=== PATIENT | male | born 1935 | race Caucasian/White ===

== ENCOUNTER 2016-09-03 21:23 | Emergency (ER) | payer MEDICARE ==
[~2016-09-03] VITALS: Ht 182.9 cm; Wt 62.6 kg
[2016-09-03 22:42] LABS: Basophils # (auto) 0 uL; Basophils % (auto) 0.3 % (0.0-2.0); Eosinophils # (auto) 0.1 uL; Eosinophils % (auto) 1.7 % (0.0-7.0); Hematocrit 29.7 % (41.0-53.0); Lymphocytes # (auto) 0.8 uL; Lymphocytes % (auto) 9.9 % (10.0-50.0); Mean Corpuscular Hemoglobin 31.3 pg (28.0-32.0); Mean Corpuscular Hgb Conc. 33.6 g/dL (32.0-36.0); Mean Corpuscular Volume 93.1 fL (80.0-100.0); Mean Platelet Volume 10.5 fL (7.4-10.4); Monocytes # (auto) 0.5 uL; Monocytes % (auto) 6.3 % (0.0-12.0); Neutrophils # (auto) 6.3 uL; Neutrophils % (auto) 81.8 % (37.0-80.0); Platelet Count (auto) 231 10^3/uL (140-450); Red Cell Distribution Width 14.1 % (11.6-16.0); White Blood Cell 7.7 10^3/uL (4.4-10.8)
[2016-09-03 22:58] LABS: Albumin 3.3 g/dL (3.4-5.0); BUN/Creatinine Ratio 6.3; Calcium 9.3 mg/dL (8.5-10.1); Potassium 3.5 mmol/L (3.5-5.1)
[2016-09-03 23:00] LABS: Bilirubin, Total 0.2 mg/dL (0.2-1.0); Total Protein 6.8 g/dL (6.4-8.2)
[2016-09-04 05:34] VITALS: BP 123/65
== END 2016-09-04 05:30 | disposition home or self-care (01) ==
LOC: ER 21:23
DX: R53.1 Weakness (principal); T50.905A Adverse effect of unspecified drugs, medicaments and biological substances, initial encounter; I12.0 Hypertensive chronic kidney disease with stage 5 chronic kidney disease or end stage renal disease; N18.6 End stage renal disease; Z99.2 Dependence on renal dialysis; E11.649 Type 2 diabetes mellitus with hypoglycemia without coma; R51 Headache; Z88.1 Allergy status to other antibiotic agents; Z88.8 Allergy status to other drugs, medicaments and biological substances; E11.22 Type 2 diabetes mellitus with diabetic chronic kidney disease; Y93.89 Activity, other specified; Y99.9 Unspecified external cause status; Y92.89 Other specified places as the place of occurrence of the external cause
CPT/HCPCS: 36415; 70450; 80053; 85025; 93005; 94761

== ENCOUNTER 2016-10-10 13:18 | Emergency (ER) | payer MEDICARE ==
[~2016-10-10] VITALS: Ht 177.8 cm; Wt 77.1 kg
[2016-10-10 14:11] LABS: Basophils # (auto) 0 uL; Basophils % (auto) 0.2 % (0.0-2.0); Eosinophils # (auto) 0.3 uL; Eosinophils % (auto) 3.6 % (0.0-7.0); Hemoglobin 10.1 g/dL (13.5-17.5); Lymphocytes % (auto) 12.6 % (10.0-50.0); Mean Corpuscular Hemoglobin 31.1 pg (28.0-32.0); Mean Corpuscular Hgb Conc. 32.5 g/dL (32.0-36.0); Mean Corpuscular Volume 95.8 fL (80.0-100.0); Mean Platelet Volume 10.7 fL (7.4-10.4); Monocytes # (auto) 0.6 uL; Monocytes % (auto) 7.9 % (0.0-12.0); Neutrophils # (auto) 5.7 uL; Neutrophils % (auto) 75.7 % (37.0-80.0); Platelet Count (auto) 218 10^3/uL (140-450); SUSPECT VIEW TRANSMISSION; White Blood Cell 7.6 10^3/uL (4.4-10.8)
[2016-10-10 14:33] LABS: Albumin 3.5 g/dL (3.4-5.0); Alkaline Phosphatase 66 U/L (45-117); Anion Gap 10 (5-15); Aspartate Aminotransferase 9 U/L (15-37); BUN/Creatinine Ratio 7.2; Bilirubin, Total 0.4 mg/dL (0.2-1.0); Blood Urea Nitrogen 51 mg/dL (7-18); Calcium 9.3 mg/dL (8.5-10.1); Carbon Dioxide 35 mmol/L (21-32); Chloride 96 mmol/L (98-107); GFR African American 10 mL/min; GFR Non-African American 8 mL/min; Glucose 79 mg/dL (74-106); Potassium 3.6 mmol/L (3.5-5.1); Sodium 141 mmol/L (136-145); Total Protein 6.8 g/dL (6.4-8.2)
[2016-10-10] MEDS ORDERED: ONDANSETRON HCL 4 MG/2 ML VIAL IV ONE (19:15)
[2016-10-10] MEDS ORDERED: MORPHINE SULF INJ 2 MG/ML SYRINGE 1ML IV ONE (19:15)
[2016-10-10 21:06] VITALS: BP 132/71
== END 2016-10-10 21:25 | disposition home or self-care (01) ==
LOC: ER 13:18
DX: S76.912A Strain of unspecified muscles, fascia and tendons at thigh level, left thigh, initial encounter (principal); I12.0 Hypertensive chronic kidney disease with stage 5 chronic kidney disease or end stage renal disease; N18.6 End stage renal disease; E11.22 Type 2 diabetes mellitus with diabetic chronic kidney disease; R53.1 Weakness; Z88.1 Allergy status to other antibiotic agents; Z99.2 Dependence on renal dialysis; W18.39XA Other fall on same level, initial encounter; Y93.89 Activity, other specified; Y92.89 Other specified places as the place of occurrence of the external cause; Y99.8 Other external cause status
CPT/HCPCS: 36415; 72192; 73552; 80053; 84484; 85025; 85379; 93971; 96374; 96375; 99285; J2270; J2405

== ENCOUNTER 2017-08-24 18:59 | Inpatient (IN) | payer MEDICARE ==
[~2017-08-24] VITALS: Ht 175.3 cm; Wt 79.3 kg
[~2017-08-24 18:59] MED LIST: AMLO10TA2 PO; CARV25TA55 PO; CITA10TA59 PO; SEVE800T8 PO; TRAGPOW14 XX; VALS320T15 PO
[2017-08-24 20:53] LABS: Basophils # (auto) 0 uL; Basophils % (auto) 0.5 % (0.0-2.0); Eosinophils # (auto) 0.3 uL; Eosinophils % (auto) 4.3 % (0.0-7.0); Hematocrit 28.8 % (41.0-53.0); Hemoglobin 9.4 g/dL (13.5-17.5); Lymphocytes % (auto) 15.3 % (10.0-50.0); Mean Corpuscular Hemoglobin 31.3 pg (28.0-32.0); Mean Corpuscular Hgb Conc. 32.7 g/dL (32.0-36.0); Mean Corpuscular Volume 95.6 fL (80.0-100.0); Monocytes # (auto) 0.6 uL; Monocytes % (auto) 8.9 % (0.0-12.0); Neutrophils # (auto) 4.5 uL; Nucleated Red Blood Cells % 0.1 %; Platelet Count (auto) 242 10^3/uL (140-450); Red Blood Cells 3.01 10^6/uL (4.5-5.90); Red Cell Distribution Width 13.9 % (11.8-14.3); White Blood Cell 6.3 10^3/uL (4.4-10.8)
[2017-08-24 21:15] LABS: Alanine Aminotransferase 19 U/L (16-61); Albumin 2.6 g/dL (3.4-5.0); Alkaline Phosphatase 58 U/L (45-117); Anion Gap 10 (5-15); Aspartate Aminotransferase 19 U/L (15-37); BUN/Creatinine Ratio 7.6; Bilirubin, Total 0.4 mg/dL (0.2-1.0); Blood Urea Nitrogen 46 mg/dL (7-18); Calcium 9.3 mg/dL (8.5-10.1); Carbon Dioxide 32 mmol/L (21-32); Chloride 96 mmol/L (98-107); GFR African American 11 mL/min; GFR Non-African American 9 mL/min; Glucose 108 mg/dL (74-106); Magnesium 2.3 mg/dL (1.6-2.6); Potassium 3.7 mmol/L (3.5-5.1); Sodium 138 mmol/L (136-145); Total Protein 6.3 g/dL (6.4-8.2)
[2017-08-24] MEDS ORDERED: FUROSEMIDE 20 MG/2 ML VIAL ONE (23:41)
[2017-08-25] MEDS ORDERED: LEVOFLOXACIN 750MG 150 ML IV ONE (00:15)
[2017-08-25] MEDS ORDERED: FUROSEMIDE 20 MG/2 ML VIAL IV ONE ×2 (00:30→00:45)
[2017-08-25] MEDS ORDERED: ONDANSETRON HCL 4 MG/2 ML VIAL IV PRN (03:45)
[2017-08-25] MEDS ORDERED: ACETAMINOPHEN 500 MG TAB PO PRN ×2 (03:45→11:30)
[2017-08-25] MEDS: HYDROcodone-ACET 5/325MG TAB PO PRN ×2 (04:53→16:26)
[2017-08-25 06:25] LABS: Basophils # (auto) 0 uL; Eosinophils # (auto) 0.2 uL; Hematocrit 22.8 % (41.0-53.0); Monocytes # (auto) 0.6 uL; Red Blood Cells 2.38 10^6/uL (4.5-5.90); White Blood Cell 5.9 10^3/uL (4.4-10.8)
[2017-08-25 06:28] LABS: Basophils % (auto) 0.7 % (0.0-2.0); Eosinophils % (auto) 4.3 % (0.0-7.0); Hemoglobin 7.6 g/dL (13.5-17.5); Lymphocytes % (auto) 16.8 % (10.0-50.0); Mean Corpuscular Hemoglobin 32.1 pg (28.0-32.0); Mean Corpuscular Hgb Conc. 33.6 g/dL (32.0-36.0); Mean Corpuscular Volume 95.6 fL (80.0-100.0); Neutrophils % (auto) 68.2 % (37.0-80.0); Platelet Count (auto) 221 10^3/uL (140-450); Red Cell Distribution Width 14.3 % (11.8-14.3)
[2017-08-25 06:46] LABS: BUN/Creatinine Ratio 7.8; Calcium 9.2 mg/dL (8.5-10.1); Potassium 3.8 mmol/L (3.5-5.1)
[2017-08-25] MEDS ORDERED: amLODIPine BESYLATE 5 MG TAB PO ONE (08:30)
[2017-08-25] MEDS: AZITHROMYCIN 500MG/ 250ML 250 ML IV SCH (09:56)
[2017-08-25] MEDS ORDERED: CITALOPRAM HYDROBR 20 MG TAB PO SCH (10:00)
[2017-08-25] MEDS ORDERED: CARVEDILOL 12.5 MG TAB PO SCH ×2 (10:00→22:00)
[2017-08-25] MEDS ORDERED: cefTRIAXone 1GM/10ml IVPUSH 10 ML IV ONE (11:30)
[2017-08-25] MEDS ORDERED: LORazepam 0.5 MG TAB PO PRN (11:30)
[2017-08-25] MEDS ORDERED: OSELTAMIVIR 75 MG CAP PO ONE (11:30)
[2017-08-25] MEDS ORDERED: PROMETHAZINE HCL 25 MG/ML 1ML IV PRN (11:30)
[2017-08-25] MEDS ORDERED: MORPHINE SULF INJ 2 MG/ML SYRINGE 1ML IV PRN (11:30)
[2017-08-25] MEDS ORDERED: VANCOMYCIN PER PHARMACY 0 MG IV SCH (11:30)
[2017-08-25] MEDS ORDERED: TEMAZEPAM 15 MG CAP PO PRN (11:30)
[2017-08-25] MEDS ORDERED: ALBUTEROL SULF 2.5 MG/0.5ML(0.5%) NEB SOLN NEB PRN (11:30)
[2017-08-25] MEDS ORDERED: CITALOPRAM HYDROBR 20 MG TAB PO ONE (11:45)
[2017-08-25] MEDS ORDERED: VALSARTAN 80 MG TAB PO ONE (11:45)
[2017-08-25] MEDS ORDERED: PANTOPRAZOLE 40 MG/10 ML VIAL IV ONE (11:45)
[2017-08-25] MEDS ORDERED: LACTULOSE 20Gm/30ML SOLN PO PRN (11:45)
[2017-08-25] MEDS: IPRATROPIUM BROM 0.5 MG/2.5ML INH SOL NEB SCH ×2 (12:00→18:00)
[2017-08-25] MEDS: methylPREDNISolone SOD SUCC 40 MG/ML VL IV SCH ×2 (12:00→18:43)
[2017-08-25] MEDS: ALBUTEROL SULF 2.5 MG/0.5ML(0.5%) NEB SOLN NEB SCH ×2 (12:00→18:00)
[2017-08-25] MEDS: SEVELAMER 800 MG TAB PO SCH ×2 (12:01→18:43)
[2017-08-25] MEDS ORDERED: VANCOMYCIN 1GM/250ML 250 ML IV ONE (16:15)
[2017-08-25 19:03] LABS: Hematocrit 23.6 % (41.0-53.0); Hemoglobin 7.8 g/dL (13.5-17.5)
[2017-08-25 21:08] VITALS: BP 107/63
[2017-08-25] MEDS: OSELTAMIVIR 75 MG CAP PO SCH (21:32)
[2017-08-25 21:58] LABS: Hemoglobin 8.1 g/dL (13.5-17.5)
[2017-08-25] MEDS ORDERED: PATIENTS OWN MEDICATION (Carvedilol 25 MG) PO SCH (22:00)
[2017-08-25 22:01] LABS: Hematocrit 23.6 % (41.0-53.0)
[2017-08-25] MEDS: CARVEDILOL 12.5 MG TAB PO SCH (22:01)
[2017-08-25 22:39] VITALS: BP 107/63
[2017-08-25 22:52] VITALS: BP 107/63
[2017-08-26] MEDS: methylPREDNISolone SOD SUCC 40 MG/ML VL IV SCH ×5 (00:08→23:30)
[2017-08-26] MEDS: ALBUTEROL SULF 2.5 MG/0.5ML(0.5%) NEB SOLN NEB SCH ×4 (00:25→21:52)
[2017-08-26] MEDS: IPRATROPIUM BROM 0.5 MG/2.5ML INH SOL NEB SCH ×4 (00:25→18:00)
[2017-08-26 00:52] LABS: Hemoglobin 7.8 g/dL (13.5-17.5)
[2017-08-26 00:55] LABS: Hematocrit 22.7 % (41.0-53.0)
[2017-08-26 05:50] VITALS: BP 118/68
[2017-08-26 06:56] LABS: Basophils # (auto) 0 uL; Basophils % (auto) 0.5 % (0.0-2.0); Eosinophils # (auto) 0 uL; Hematocrit 25.2 % (41.0-53.0); Hemoglobin 8.7 g/dL (13.5-17.5); Lymphocytes # (auto) 0.5 uL; Lymphocytes % (auto) 8.3 % (10.0-50.0); Mean Corpuscular Hemoglobin 32.4 pg (28.0-32.0); Mean Corpuscular Hgb Conc. 34.7 g/dL (32.0-36.0); Mean Corpuscular Volume 93.2 fL (80.0-100.0); Monocytes # (auto) 0.1 uL; Monocytes % (auto) 1.6 % (0.0-12.0); Neutrophils # (auto) 5.6 uL; Neutrophils % (auto) 89.6 % (37.0-80.0); Platelet Count (auto) 225 10^3/uL (140-450); Red Cell Distribution Width 14.1 % (11.8-14.3); White Blood Cell 6.2 10^3/uL (4.4-10.8)
[2017-08-26 07:18] LABS: Albumin 2.7 g/dL (3.4-5.0); BUN/Creatinine Ratio 7.7; Calcium 9.7 mg/dL (8.5-10.1); Potassium 4.4 mmol/L (3.5-5.1); Total Protein 6.5 g/dL (6.4-8.2)
[2017-08-26 07:52] LABS: Bilirubin, Total 0.4 mg/dL (0.2-1.0)
[2017-08-26] MEDS ORDERED: SODIUM CHL 0.9% 1000 ML BAG XX ONE (08:00)
[2017-08-26] MEDS ORDERED: EPOETIN ALFA 10,000 UNIT/1 ML VIAL IV ONE (08:00)
[2017-08-26] MEDS: SEVELAMER 800 MG TAB PO SCH ×3 (08:26→18:01)
[2017-08-26] MEDS ORDERED: VANCOMYCIN 1GM/250ML 250 ML IV ONE ×2 (09:00→16:30)
[2017-08-26 09:05] VITALS: BP 127/71
[2017-08-26] MEDS ORDERED: VALSARTAN 80 MG TAB PO SCH (10:00)
[2017-08-26] MEDS ORDERED: VALSARTAN PO SCH (10:00)
[2017-08-26] MEDS ORDERED: CITALOPRAM HYDROBR 20 MG TAB PO SCH (10:00)
[2017-08-26] MEDS ORDERED: PATIENTS OWN MEDICATION (Citalopram Hydrobromide (Celexa) 1 TAB) PO SCH (10:00)
[2017-08-26] MEDS: cefTRIAXone 1GM/10ml IVPUSH 10 ML IV SCH (12:31)
[2017-08-26] MEDS: PANTOPRAZOLE 40 MG TAB PO SCH (12:32)
[2017-08-26] MEDS: CARVEDILOL 12.5 MG TAB PO SCH ×2 (12:32→21:52)
[2017-08-26] MEDS: OSELTAMIVIR 75 MG CAP PO SCH (12:32)
[2017-08-26] MEDS: AZITHROMYCIN 500MG/ 250ML 250 ML IV SCH (12:33)
[2017-08-26 13:34] VITALS: BP 123/64
[2017-08-26 14:40] VITALS: BP 122/65
[2017-08-26 17:23] VITALS: BP 105/57
[2017-08-27 00:42] VITALS: BP 116/69
[2017-08-27] MEDS: ALBUTEROL SULF 2.5 MG/0.5ML(0.5%) NEB SOLN NEB SCH ×3 (03:39→14:08)
[2017-08-27] MEDS: IPRATROPIUM BROM 0.5 MG/2.5ML INH SOL NEB SCH ×3 (03:39→14:09)
[2017-08-27 05:35] VITALS: BP 108/65
[2017-08-27] MEDS: methylPREDNISolone SOD SUCC 40 MG/ML VL IV SCH ×2 (05:40→12:48)
[2017-08-27 08:15] LABS: Basophils # (auto) 0 uL; Basophils % (auto) 0.2 % (0.0-2.0); Eosinophils # (auto) 0 uL; Hematocrit 27.2 % (41.0-53.0); Hemoglobin 9.1 g/dL (13.5-17.5); Lymphocytes # (auto) 0.5 uL; Mean Corpuscular Hemoglobin 32.5 pg (28.0-32.0); Mean Corpuscular Hgb Conc. 33.6 g/dL (32.0-36.0); Mean Corpuscular Volume 96.6 fL (80.0-100.0); Monocytes # (auto) 0.3 uL; Neutrophils # (auto) 8.7 uL; Neutrophils % (auto) 91.8 % (37.0-80.0); Platelet Count (auto) 204 10^3/uL (140-450); Red Blood Cells 2.81 10^6/uL (4.5-5.90); Red Cell Distribution Width 14.5 % (11.8-14.3); White Blood Cell 9.5 10^3/uL (4.4-10.8)
[2017-08-27 09:00] VITALS: BP 126/80
[2017-08-27] MEDS: SEVELAMER 800 MG TAB PO SCH ×2 (09:02→12:48)
[2017-08-27] MEDS: cefTRIAXone 1GM/10ml IVPUSH 10 ML IV SCH (09:32)
[2017-08-27] MEDS ORDERED: OSELTAMIVIR 30 MG CAP PO SCH (10:00)
[2017-08-27] MEDS: PANTOPRAZOLE 40 MG TAB PO SCH (11:04)
[2017-08-27] MEDS: CARVEDILOL 12.5 MG TAB PO SCH (11:04)
[2017-08-27] MEDS: AZITHROMYCIN 500MG/ 250ML 250 ML IV SCH (11:04)
[2017-08-27 13:00] VITALS: BP 124/81
[2017-08-27 16:47] VITALS: BP 111/62
[2017-08-27 16:58] VITALS: BP 111/62
[2017-08-27] MEDS ORDERED: DOXYCYCLINE 100 MG TAB/CAP PO SCH (22:00)
[2017-08-27] MEDS ORDERED: predniSONE 20 MG TAB PO SCH (22:00)
== END 2017-08-27 19:38 | disposition home or self-care (01) | DRG 291 ==
LOC: EDBD 18:59 → ER 19:03 → TELE 19:04 → TELE-WESTW 08-25 20:55
PROVIDERS: ADMIT Nurse Practitioner Family; ATTEND Internal Medicine
PROC: 5A1D70Z Performance of Urinary Filtration, Intermittent, Less than 6 Hours Per Day (ICD-10-PCS; principal; 2017-08-26)
DX: I13.2 Hypertensive heart and chronic kidney disease with heart failure and with stage 5 chronic kidney disease, or end stage renal disease (principal); J10.08 Influenza due to other identified influenza virus with other specified pneumonia; N18.6 End stage renal disease; E11.22 Type 2 diabetes mellitus with diabetic chronic kidney disease; I48.91 Unspecified atrial fibrillation; D63.1 Anemia in chronic kidney disease; I50.43 Acute on chronic combined systolic (congestive) and diastolic (congestive) heart failure; N25.81 Secondary hyperparathyroidism of renal origin; I25.10 Atherosclerotic heart disease of native coronary artery without angina pectoris; I70.0 Atherosclerosis of aorta; J20.9 Acute bronchitis, unspecified; F32.9 Major depressive disorder, single episode, unspecified; Z79.899 Other long term (current) drug therapy; Z82.49 Family history of ischemic heart disease and other diseases of the circulatory system; Z99.2 Dependence on renal dialysis
CPT/HCPCS: 36415; 36600; 71045; 71046; 80048; 80053; 80202; 82378; 82550; 82805; 82962; 83605; 83735; 83880; 84443; 84484; 85014; 85018; 85025; 85045; 85652; 86141; 86850; 86900; 86901; 86920; 87040; 87070; 87081; 87205; 87400; 90935; 93005; 94640; 96365; 96375; C9113; G9035; J1642; J1956